=== PATIENT | female | born 1980 | race African-American/Black ===

== ENCOUNTER 2021-12-19 16:06 | Emergency (ER) | payer MEDICARE, MEDICAID ==
[~2021-12-19] VITALS: Ht 157.5 cm; Wt 75.0 kg
[2021-12-19 16:13] VITALS: BP 147/68
[2021-12-19] MEDS ORDERED: CARB1DRO OP (18:44)
== END 2021-12-19 19:01 | disposition home or self-care (01) ==
LOC: ER 16:06
DX: H10.12 Acute atopic conjunctivitis, left eye (principal)
CPT/HCPCS: 99281; 99282

== ENCOUNTER 2024-08-15 10:38 | Emergency (ER) | payer MEDICARE, MEDICAID ==
[~2024-08-15] VITALS: Ht 162.6 cm; Wt 60.0 kg
[~2024-08-15 10:38] MED LIST: CARB1DRO OP
[2024-08-15] MEDS ORDERED: LIDOCAINE HCL/PF 1% 10 MG/ML 5ML VIAL INFIL ONE (11:30)
[2024-08-15] MEDS: TETANUS, DIPHTHERIA, PERTUSSIS VAC/PF 0.5ML (>10YR OLD) IM ONE (11:48)
[2024-08-15] MEDS ORDERED: HALOPERIDOL LACTATE 5MG/ML VIAL IM ONE ×2 (13:30→13:45)
[2024-08-15] MEDS ORDERED: MIDAZOLAM HCL 2 MG/2 ML VIAL IM ONE (13:45)
[2024-08-15] MEDS: HALOPERIDOL LACTATE 5MG/ML VIAL IM NR (14:13)
[2024-08-15 14:14] VITALS: O2SAT 100
[2024-08-15] MEDS: MIDAZOLAM HCL 2 MG/2 ML VIAL IM NR (14:14)
[2024-08-15 16:26] VITALS: BP 110/65; PULSE 80; RESP 16; TEMP 36.8; O2SAT 100
== END 2024-08-15 16:31 | disposition home or self-care (01) ==
LOC: ER 10:38
DX: S01.01XA Laceration without foreign body of scalp, initial encounter (principal); E03.9 Hypothyroidism, unspecified; F72 Severe intellectual disabilities; G40.909 Epilepsy, unspecified, not intractable, without status epilepticus; I10 Essential (primary) hypertension; W19.XXXA Unspecified fall, initial encounter; Y93.89 Activity, other specified; Y92.89 Other specified places as the place of occurrence of the external cause; Y99.8 Other external cause status
CPT/HCPCS: 99285; 70450; 72125; 90715; 12002; 90471; 96372; J1630; J2003; J2250; A4606

== ENCOUNTER 2024-08-26 09:47 | Emergency (ER) | payer OTHER, MEDICAID ==
[~2024-08-26] VITALS: Ht 154.9 cm; Wt 69.0 kg
[2024-08-26 09:54] VITALS: O2SAT 100
[2024-08-26 11:03] VITALS: BP 100/51; PULSE 60; RESP 16; TEMP 36.7; O2SAT 100
== END 2024-08-26 11:05 | disposition home or self-care (01) ==
LOC: ER 10:09
DX: S01.01XD Laceration without foreign body of scalp, subsequent encounter (principal); F32.A Depression, unspecified; I10 Essential (primary) hypertension; E03.9 Hypothyroidism, unspecified; X58.XXXD Exposure to other specified factors, subsequent encounter
CPT/HCPCS: 99281

== ENCOUNTER 2024-11-07 17:20 | Emergency (ER) | payer MEDICARE, MEDICAID ==
[~2024-11-07] VITALS: Ht 154.9 cm; Wt 63.0 kg
[2024-11-07 17:35] VITALS: TEMP 36.7; O2SAT 100
[2024-11-07] MEDS ORDERED: AZIT250T12 MT (18:40)
[2024-11-07] MEDS ORDERED: ERYT1OIN6 RIGHTEYE (18:40)
[2024-11-07] MEDS ORDERED: TOPUD MT (18:40)
[2024-11-07 19:23] VITALS: PULSE 83; RESP 18; O2SAT 97
== END 2024-11-07 19:48 | disposition home or self-care (01) ==
LOC: ER 17:20
DX: J32.9 Chronic sinusitis, unspecified (principal); H10.9 Unspecified conjunctivitis; F32.A Depression, unspecified; I10 Essential (primary) hypertension; E03.9 Hypothyroidism, unspecified; Z79.899 Other long term (current) drug therapy
CPT/HCPCS: 71045; 99283

== ENCOUNTER 2025-03-26 19:11 | Emergency (ER) | payer MEDICARE, MEDICAID ==
[~2025-03-26] VITALS: Ht 147.3 cm; Wt 53.8 kg
[~2025-03-26 19:11] MED LIST changes: +AZIT250T12 MT; +ERYT1OIN6 RIGHTEYE; +TOPUD MT
[2025-03-26 19:15] VITALS: O2SAT 100
[2025-03-26 19:29] VITALS: BP 108/67; PULSE 89; RESP 18; TEMP 36.9; O2SAT 99
== END 2025-03-26 23:13 | disposition left against medical advice (07) ==
LOC: ER 19:11
DX: H57.13 Ocular pain, bilateral (principal); F32.A Depression, unspecified; I10 Essential (primary) hypertension; E03.9 Hypothyroidism, unspecified
CPT/HCPCS: 99281